=== PATIENT | female | born 1980 | race Caucasian/White ===

== ENCOUNTER 2018-02-01 19:41 | Emergency (ER) | payer SELFPAY ==
[2018-02-01] MEDS ORDERED: LIDOCAINE HCL 2% (VISCOUS) 20 ML SOL MT ONE (20:10)
[2018-02-01] MEDS ORDERED: LIDOCAINE HCL 2% (VISCOUS) 20 ML SOL ONE (20:10)
[2018-02-01] MEDS ORDERED: IBUPROFEN 400 MG TAB PO ONE (20:29)
[2018-02-01] MEDS ORDERED: ACETAMINOPHEN 500 MG 500 MG TAB PO ONE (20:29)
[2018-02-01] MEDS ORDERED: CLINDAMYCIN HYDROCHLORIDE 150 MG CAP PO SCH (20:30)
[2018-02-01] MEDS ORDERED: ACETAMINOPHEN 500 MG 500 MG TAB ONE (20:33)
[2018-02-01] MEDS ORDERED: IBUPROFEN 400 MG TAB ONE (20:33)
[2018-02-01 20:50] VITALS: RESP 22
[2018-02-01 20:51] VITALS: BP 151/103; PULSE 83; TEMP 97.7; O2SAT 98
== END 2018-02-01 20:48 | disposition home or self-care (01) | DRG 159 ==
LOC: ED 19:41
DX: K04.7 Periapical abscess without sinus (principal); Z72.0 Tobacco use
CPT/HCPCS: 99282; 99283; A9270-GY